=== PATIENT | female | born 1945 | race Caucasian/White ===

== ENCOUNTER 2020-03-15 18:15 | Emergency (ER) | payer MEDICARE ==
[~2020-03-15] VITALS: Ht 167.6 cm; Wt 86.4 kg
[2020-03-15 18:56] VITALS: BP 155/83
== END 2020-03-15 18:58 | disposition home or self-care (01) ==
LOC: ER 18:17
DX: Z00.8 Encounter for other general examination (principal)
CPT/HCPCS: 99281